=== PATIENT | female | born 1960 | race African-American/Black ===

== ENCOUNTER 2021-01-27 17:32 | Emergency (ER) | payer OTHER, MEDICAID ==
[~2021-01-27] VITALS: Ht 162.6 cm; Wt 77.0 kg
[2021-01-27] MEDS ORDERED: LIDOCAINE HCL/PF 1% 10 MG/ML 5ML VIAL INFIL ONE (18:00)
[2021-01-27] MEDS ORDERED: BACITRACIN ZINC OINT UDPKT TOP ONE (18:00)
[2021-01-27] MEDS ORDERED: TETANUS, DIPHTHERIA, PERTUSSIS VAC/PF 0.5ML (>7YR OLD) IM ONE (18:00)
[2021-01-27] MEDS ORDERED: IBUPROFEN 600MG TABLET PO ONE (18:00)
[2021-01-27 19:26] VITALS: BP 155/78
== END 2021-01-27 19:28 | disposition home or self-care (01) ==
LOC: ER 18:24
DX: S91.312A Laceration without foreign body, left foot, initial encounter (principal); E11.9 Type 2 diabetes mellitus without complications; I10 Essential (primary) hypertension; Z98.890 Other specified postprocedural states; X58.XXXA Exposure to other specified factors, initial encounter; Y93.89 Activity, other specified; Y92.89 Other specified places as the place of occurrence of the external cause; Y99.8 Other external cause status
CPT/HCPCS: 12001; 73630; 90471; 90715; 99283; J3490; Z7610

== ENCOUNTER 2021-02-08 06:37 | Emergency (ER) | payer OTHER ==
[~2021-02-08] VITALS: Ht 165.1 cm; Wt 80.0 kg
[2021-02-08 06:55] VITALS: BP 153/74
== END 2021-02-08 08:51 | disposition home or self-care (01) ==
LOC: ER 06:37
DX: S91.115D Laceration without foreign body of left lesser toe(s) without damage to nail, subsequent encounter (principal); X58.XXXD Exposure to other specified factors, subsequent encounter; E11.9 Type 2 diabetes mellitus without complications; I10 Essential (primary) hypertension; Z98.890 Other specified postprocedural states
CPT/HCPCS: 99281

== ENCOUNTER 2022-02-21 05:27 | Emergency (ER) | payer MEDICAID, OTHER ==
[~2022-02-21] VITALS: Ht 165.1 cm; Wt 82.0 kg
[2022-02-21] MEDS ORDERED: HYDROCODONE/ACETAMINOPHEN 5/325MG TABLET PO ONE (10:45)
[2022-02-21 10:55] VITALS: BP 165/77
[2022-02-21] MEDS ORDERED: HYDR-4001 MT (11:23)
[2022-02-21] MEDS ORDERED: AMOX1TAB16 MT (11:23)
== END 2022-02-21 11:41 | disposition home or self-care (01) ==
LOC: ER 05:40
DX: K04.7 Periapical abscess without sinus (principal); E11.9 Type 2 diabetes mellitus without complications; I10 Essential (primary) hypertension
CPT/HCPCS: 99283